=== PATIENT | male | born 1980 | race Caucasian/White ===

== ENCOUNTER 2019-10-09 01:54 | Emergency (ER) | END 2019-10-09 03:56 | disposition home or self-care (01) | DX: R51 Headache (principal); M54.2 Cervicalgia; F17.290 Nicotine dependence, other tobacco product, uncomplicated | CPT/HCPCS: 36415; 70496; 70498; 80048; 99284; 99406; Q9967 ==

== ENCOUNTER 2022-05-01 21:54 | Emergency (ER) | payer MEDICAID ==
[~2022-05-01] VITALS: Ht 170.2 cm; Wt 88.5 kg
--- NOTE | 2022-05-01 22:32 | NUR ---
pt ambulated to room 5a c/o abd pain and leg pain.
--- NOTE | 2022-05-01 22:37 | NUR ---
Dr. Ba in for JONG.
[2022-05-01 23:11] LABS: *BILIRUBIN,URIN NEGATIVE (NEGATIVE); *CLARITY,URINE CLEAR (CLEAR); *COLOR,URINE YELLOW (YELLOW); *KETONES,URINE NEGATIVE (NEGATIVE); *UROBILINOGEN,URINE 0.2 E.U./dl (NORMAL); LEUKOCYTE ESTERASE ,URINE NEGATIVE (NEGATIVE); NITRITE, URINE NEGATIVE (NEGATIVE); UGLUCOSE NEGATIVE (NEGATIVE)
[2022-05-01 23:12] LABS: HEMATOCRIT 41.8 % (36.7-47.1); MEAN CORPUSCULAR HEMOGLOBIN 28.5 uug (23.8-33.4); MEAN CORPUSCULAR VOLUME 81.6 fL (73.0-96.2); PLATELET COUNT (AUTO) 228 K/uL (152-348)
[2022-05-01 23:13] LABS: *BLOOD, URINE TRACE (NEGATIVE)
[2022-05-01 23:18] LABS: BILIRUBIN,DIRECT 0.1 mg/dL (0.0-0.2); BILIRUBIN,TOTAL 0.2 mg/dL (0.2-1.0); CREATININE 0.9 mg/dL (0.6-1.3); POTASSIUM 3.6 mmol/L (3.5-5.1); TOTAL PROTEIN, SERUM 7.1 g/dL (6.4-8.2)
[2022-05-01 23:26] LABS: BACTERIA,URINE NONE SEEN /HPF (NONE SEEN); RBC,URINE 0-3 /HPF (0-3); SQUAMOUS EPITHELIAL CELL,UR FEW /HPF (NONE SEEN); WBC,URINE NONE SEEN /HPF (0-3)
--- NOTE | 2022-05-01 23:51 | NUR ---
pt went for cat scan.
[2022-05-02] MEDS ORDERED: NAPR-1164 PO (00:11)
--- NOTE | 2022-05-02 00:19 | NUR ---
Patient discharged to home in stable condition. Written and verbal after care instructions given. Patient verbalizes understanding of instructions. Stressed follow up or return to ER for worsening s/s.
[2022-05-02 00:20] VITALS: BP 140/80
[2022-05-04 02:06] LABS: *GC NAA Negative (Negative)
[2022-05-04 07:06] LABS: *TRIC.VAG. NAA Negative (Negative)
== END 2022-05-02 00:20 | disposition home or self-care (01) ==
LOC: ER 21:59
DX: R10.32 Left lower quadrant pain (principal); R20.8 Other disturbances of skin sensation; F17.200 Nicotine dependence, unspecified, uncomplicated
CPT/HCPCS: 36415; 83690; 85025; 87491; A4663